=== PATIENT | female | born 1970 | race Caucasian/White ===

== ENCOUNTER 2017-08-13 20:35 | Observation (INO) | payer OTHER ==
[2017-08-13 20:42] VITALS: RESP 18
[2017-08-13] MEDS ORDERED: ASPIRIN 81 MG PO STA (20:49)
[2017-08-13] MEDS ORDERED: SODIUM CHLORIDE 0.9% 1,000 ML IV STA (20:49)
--- NOTE | 2017-08-13 21:00 | ED ---
General Adult HPI - General Chief complaint: Chest Pain Stated complaint: left arm pain Time Seen by Provider: 08/13/17 20:43 Source: patient, EMS, RN notes reviewed Mode of arrival: EMS Limitations: no limitations - History of Present Illness Initial comments: This is a 47-year-old female who presents to the emergency department with chief complaint of left arm pain. Patient states that she has a history of open -heart surgery 4 years ago. She states that for the last 2-3 days she has had intermittent left arm and chest pain. She states that she was evaluated by an emergency department at [facility] in [place] 3 days ago but that they did not diagnose her with anything. She states that she does feel short of breath. She also complains of dizziness when she lies back. Denies any recent illnesses or infections. Denies fevers or chills, abdominal pain, nausea or vomiting. - Related Data Home Medications Medication Instructions Recorded Confirmed Etonogestrel [Nexplanon] 1 implant SQ [id number] 08/13/17 08/13/17 Pregabalin [Lyrica] 150 mg PO BID 08/13/17 08/13/17 Allergies Allergy/AdvReac Type Severity Reaction Status Date / Time Penicillins Allergy Unknown Verified 08/13/17 21:19 Review of Systems ROS Statement: Those systems with pertinent positive or pertinent negative responses have been documented in the HPI. ROS Other: All systems not noted in ROS Statement are negative. Past Medical History Past Medical History: Hearing Disorder / Deafness, Hypertension, Myocardial Infarction (non Q-wave) Additional Past Medical History / Comment(s): speech impairment History of Any Multi-Drug Resistant Organisms: None Reported Past Surgical History: Unable to Obtain, Coronary Bypass/CABG Past Psychological History: Depression Smoking Status: Never smoker Past Alcohol Use History: Abuse, Daily, Heavy Past Drug Use History: None Reported General Exam - General Exam Comments Initial Comments: General: Awake and alert, well-developed; in no apparent distress. HEENT: Head atraumatic, normocephalic. Pupils are equal, round and reactive to light. Extraocular movements intact. Oropharynx moist without erythema or exudate. Missing dentition throughout, making it difficult to understand patient while speaking. Neck: Supple. Normal ROM. Cardiovascular: Regular rate and rhythm. No murmurs, rubs or gallops. Chest symmetrical. Respiratory: Lungs clear to auscultation bilaterally. No wheezes, rales or rhonchi. Normal respiratory effort with no use of accessory muscles. Musculoskeletal: Normal ROM, no tenderness bilateral upper and lower extremities. Skin: [place], warm and dry without rashes or lesions. Neurological: Alert and oriented x3. CN II-XII grossly intact. Speech is fluent and answers are appropriate. No focal neuro deficits. Psychiatric: Normal mood and affect. No overt signs of depression or anxiety noted. Limitations: no limitations Course Vital Signs 08/13/17 20:38 Temperature 98.3 F Pulse Rate 66 Respiratory 18 Rate Blood Pressure 137/87 O2 Sat by Pulse 100 Oximetry EKG Findings - EKG Comments: EKG Findings:: 21:07:05. Normal sinus rhythm, nonspecific intraventricular block, T-wave abnormality, consider anterior ischemia. Ventricular rate 63 bpm , NE interval 156, QRS duration 126, QT/QTc 472/483 Medical Decision Making - Medical Decision Making This is a 47-year-old female who presents to the emergency department with chief complaint of left arm and chest pain for the last 2-3 days. She does report a history of open-heart surgery. CBC, CMP and coags are unremarkable. EKG did reveal normal sinus rhythm, nonspecific intraventricular block and T- wave abnormality. Chest x-ray revealed no acute abnormalities. This case was discussed with attending physician, Dr. Amezquita who recommends admission. Patient is in agreement for admission. She will be admitted for chest pain to Dr. Calvillo with consult to cardiology. Patient's vital signs are stable and she is in no acute distress. - Lab Data Result diagrams: 08/13/17 21:05 08/13/17 21:05 Lab Results 08/13/17 08/13/17 08/13/17 Range/Units 21:05 21:05 21:05 WBC 5.2 (3.8-10.6) k/uL RBC 3.84 (3.80-5.40) m/uL Hgb 13.1 (11.4-16.0) gm/dL Hct 38.8 (34.0-46.0) % MCV 101.1 H (80.0-100.0) fL MCH 34.1 (25.0-35.0) pg MCHC 33.8 (31.0-37.0) g/dL RDW 14.9 (11.5-15.5) % Plt Count 178 (150-450) k/uL Neutrophils % 62 % Lymphocytes % 27 % Monocytes % 6 % Eosinophils % 2 % Basophils % 1 % Neutrophils # 3.2 (1.3-7.7) k/uL Lymphocytes # 1.4 (1.0-4.8) k/uL Monocytes # 0.3 (0-1.0) k/uL Eosinophils # 0.1 (0-0.7) k/uL Basophils # 0.0 (0-0.2) k/uL Macrocytosis Slight PT (9.0-12.0) sec INR (<1.2) APTT (22.0-30.0) sec Sodium 141 (137-145) mmol/L Potassium 4.0 (3.5-5.1) mmol/L Chloride 104 (98-107) mmol/L Carbon Dioxide 25 (22-30) mmol/L Anion Gap 12 mmol/L BUN 9 (7-17) mg/dL Creatinine 0.72 (0.52-1.04) mg/dL Est GFR (CKD-EPI)AfAm >90 (>60 ml/min/1.73 sqM) Est GFR (CKD-EPI)NonAf >90 (>60 ml/min/1.73 sqM) Glucose 87 (74-99) mg/dL Calcium 8.9 (8.4-10.2) mg/dL Magnesium 2.1 (1.6-2.3) mg/dL Total Bilirubin 0.3 (0.2-1.3) mg/dL AST 53 H (14-36) U/L ALT 45 (9-52) U/L Alkaline Phosphatase 54 (38-126) U/L Total Creatine Kinase 60 (30-135) U/L Total Protein 7.0 (6.3-8.2) g/dL Albumin 4.5 (3.5-5.0) g/dL 08/13/17 Range/Units 21:05 WBC (3.8-10.6) k/uL RBC (3.80-5.40) m/uL Hgb (11.4-16.0) gm/dL Hct (34.0-46.0) % MCV (80.0-100.0) fL MCH (25.0-35.0) pg MCHC (31.0-37.0) g/dL RDW (11.5-15.5) % Plt Count (150-450) k/uL Neutrophils % % Lymphocytes % % Monocytes % % Eosinophils % % Basophils % % Neutrophils # (1.3-7.7) k/uL Lymphocytes # (1.0-4.8) k/uL Monocytes # (0-1.0) k/uL Eosinophils # (0-0.7) k/uL Basophils # (0-0.2) k/uL Macrocytosis PT 9.6 (9.0-12.0) sec INR 1.0 (<1.2) APTT 21.6 L (22.0-30.0) sec Sodium (137-145) mmol/L Potassium (3.5-5.1) mmol/L Chloride (98-107) mmol/L Carbon Dioxide (22-30) mmol/L Anion Gap mmol/L BUN (7-17) mg/dL Creatinine (0.52-1.04) mg/dL Est GFR (CKD-EPI)AfAm (>60 ml/min/1.73 sqM) Est GFR (CKD-EPI)NonAf (>60 ml/min/1.73 sqM) Glucose (74-99) mg/dL Calcium (8.4-10.2) mg/dL Magnesium (1.6-2.3) mg/dL Total Bilirubin (0.2-1.3) mg/dL AST (14-36) U/L ALT (9-52) U/L Alkaline Phosphatase (38-126) U/L Total Creatine Kinase (30-135) U/L Total Protein (6.3-8.2) g/dL Albumin (3.5-5.0) g/dL - Radiology Data Radiology results: report reviewed, image reviewed Chest x-ray impression: No active cardiopulmonary disease. Normal heart. Disposition Clinical Impression: Chest pain Disposition: ADMITTED IP TO THIS [facility] Condition: Stable Is patient prescribed a controlled substance at d/c from ED?: No Referrals: Nonstaff,Physician [Primary Care Provider] - 1-2 days Time of Disposition: 21:59
[2017-08-13 21:24] LABS: Basophils % (A) 1 %; Eosinophils # (A) 0.1 k/uL (0-0.7); Eosinophils % (A) 2 %; HCT 38.8 % (34.0-46.0); HGB 13.1 gm/dL (11.4-16.0); Lymphocytes # (A) 1.4 k/uL (1.0-4.8); Lymphocytes % (A) 27 %; MCH 34.1 pg (25.0-35.0); MCHC 33.8 g/dL (31.0-37.0); MCV 101.1 fL (80.0-100.0); Macrocytosis Slight; Mean Platelet Volume 7.7; Monocytes # (A) 0.3 k/uL (0-1.0); Monocytes % (A) 6 %; Neutrophils # (A) 3.2 k/uL (1.3-7.7); Neutrophils % (A) 62 %; Platelet Count 178 k/uL (150-450); RBC 3.84 m/uL (3.80-5.40); RDW 14.9 % (11.5-15.5); WBC 5.2 k/uL (3.8-10.6)
[2017-08-13 21:33] LABS: ALT 45 U/L (9-52); AST 53 U/L (14-36); Albumin 4.5 g/dL (3.5-5.0); Alkaline Phosphatase 54 U/L (38-126); Anion Gap 12 mmol/L; Blood Urea Nitrogen 9 mg/dL (7-17); Calcium 8.9 mg/dL (8.4-10.2); Carbon Dioxide 25 mmol/L (22-30); Chloride 104 mmol/L (98-107); Glucose 87 mg/dL (74-99); Magnesium 2.1 mg/dL (1.6-2.3); Sodium 141 mmol/L (137-145); Total Bilirubin 0.3 mg/dL (0.2-1.3)
[2017-08-13 21:44] LABS: Prothrombin Time 9.6 sec (9.0-12.0)
--- NOTE | 2017-08-13 21:47 | XR ---
EXAMINATION TYPE: XR chest 2V DATE OF EXAM: 08/13/2017 COMPARISON: NONE HISTORY: Chest pain TECHNIQUE: Frontal and lateral views of the chest are obtained. FINDINGS: Heart and mediastinum are normal. There are sternal wires. Lungs are clear. There is no he art failure. Costophrenic angles are clear. There is thoracic levoscoliosis. IMPRESSION: No active cardiopulmonary disease. Normal heart.
[2017-08-13 21:48] LABS: Creatine Kinase 60 U/L (30-135)
[2017-08-13 21:49] LABS: Partial Thromboplastin Time 21.6 sec (22.0-30.0)
[2017-08-13] MEDS ORDERED: NITROGLYCERIN SL TABS 0.4 MG TAB SUBLINGUAL PRN (21:59)
[2017-08-13 22:00] LABS: Creatine Kinase MB 0.8 ng/mL (0.0-2.4); Troponin I <0.012 ng/mL (0.000-0.034)
[2017-08-14 03:38] LABS: Cholesterol 167 mg/dL (<200); HDL Cholesterol 69 mg/dL (40-60); LDL Cholesterol,Calculated 58 mg/dL (0-99); Triglycerides 199 mg/dL (<150)
[2017-08-14 03:47] LABS: Creatine Kinase 46 U/L (30-135)
[2017-08-14 04:00] LABS: Creatine Kinase MB 0.5 ng/mL (0.0-2.4); Troponin I <0.012 ng/mL (0.000-0.034)
[2017-08-14] MEDS ORDERED: ASPIRIN 325 MG TAB PO SCH (09:00)
[2017-08-14 09:41] VITALS: BMI 22.2
[2017-08-14 10:31] LABS: Creatine Kinase 40 U/L (30-135)
[2017-08-14 10:41] LABS: Creatine Kinase MB 0.5 ng/mL (0.0-2.4); Troponin I <0.012 ng/mL (0.000-0.034)
--- NOTE | 2017-08-14 11:17 | P.CRDCN ---
History of Present Illness History of present illness: Mrs. Linares is a pleasant 47-year-old female past medical history significant for open heart surgery when she was 3 years old she recalls that she may have had a hole in her heart. Sternotomy wires seen on xray. She also has history of hypertension and chronic daily alcohol use. She states she is somewhat new to the area and does not follow with any physicians currently. We have been asked to see her in consultation for chest pain. She states yesterday she developed a sharp pain in left precordial region with shortness of breath and dizziness while sitting by the water. The symptoms lasted approximately 5- 10 minutes and subsided on its own. There was also some pain in both arms intermittently as well. She states she tripped and fell Thursday and has been in pain intermittently ever since. The pain in her chest is reproducible on palpation and she says it feels better if she raises her arms above her head. Shortness of breath and dizziness have subsided. She denies associated palpitations, nausea, vomiting or diaphoresis. She also denies PND or orhopnea. She states her last drink was 2 days ago and she typically drinks a few beers per day. EKG reveals sinus mechanism with right bundle branch block and anterior T-wave abnormalities. No old EKG for comparision. Chest xray is negative for an acute cardiopulmonary process with evidence of scoliosis. Laboratory data reviewed, hemoglobin 13.1, platelets 178, d-dimer 0.7, sodium 141, potassium 4.0, magnesium 2.1, creatinine 0.72, cardiac enzymes negative 2 , LDL 58, HDL 69. Medications include Lyrica. Review of Systems At the time of my exam: CONSTITUTIONAL: Denies fever. Denies chills. EYES: Denies blurred vision. Denies vision changes. Denies eye pain. EARS, NOSE, MOUTH & THROAT: Denies headache. Denies sore throat. Denies ear pain. CARDIOVASCULAR: Denies chest pain. Denies shortness of breath. Denies orthopnea. Denies PND. Denies palpitations. RESPIRATORY: Denies cough. GASTROINTESTINAL: Denies abdominal pain. Denies diarrhea. Denies constipation. Denies nausea. Denies vomiting. MUSCULOSKELETAL: Denies myalgias. INTEGUMENTARY: Denies pruitis. Denies rash. NEUROLOGIC: Denies numbness. Denies tingling. Denies weakness. PSYCHIATRIC: Denies anxiety. Denies depression. ENDOCRINE: Denies fatigue. Denies weight change. Denies polydipsia. Denies polyurina. GENITOURINARY: Denies burning, hematuria or urgency with micturation. HEMATOLOGIC: Denies history of anemia. Denies bleeding. Past Medical History Past Medical History: Hearing Disorder / Deafness, Hypertension, Myocardial Infarction (non Q-wave) Additional Past Medical History / Comment(s): speech impairment Last Myocardial Infarction Date:: 2013 History of Any Multi-Drug Resistant Organisms: None Reported Past Surgical History: Coronary Bypass/CABG Additional Past Surgical History / Comment(s): 2013 cabg Past Anesthesia/Blood Transfusion Reactions: No Reported Reaction Past Psychological History: Depression Smoking Status: Never smoker Past Alcohol Use History: Abuse, Daily, Heavy Past Drug Use History: None Reported - Past Family History Father Family Medical History: Cancer, CVA/TIA, Diabetes Mellitus, Hypertension Additional Family Medical History / Comment(s): brain cancer Mother Family Medical History: Dementia Daughter(s) Additional Family Medical History / Comment(s): open heart surgery as an Medications and Allergies Home Medications Medication Instructions Recorded Confirmed Type Etonogestrel [Nexplanon] 1 implant SQ [id number] 08/13/17 08/14/17 History Pregabalin [Lyrica] 150 mg PO BID 08/13/17 08/14/17 History Allergies Allergy/AdvReac Type Severity Reaction Status Date / Time Influenza Virus Vaccines Allergy Unknown Verified 08/14/17 00:11 Penicillins Allergy Unknown Verified 08/13/17 21:19 Physical Exam Vitals: Vital Signs Temp Pulse Pulse Resp BP BP Pulse Ox 08/14/17 04:00 98.4 F 75 18 100/60 97 08/14/17 00:00 18 08/13/17 23:59 97.9 F 75 124/68 98 08/13/17 23:21 97.6 F 74 18 140/84 100 08/13/17 22:40 68 18 137/74 97 08/13/17 20:38 98.3 F 66 18 137/87 100 Intake and Output 08/13/17 08/14/17 08/14/17 22:59 06:59 14:59 Other: Voiding Method Toilet Weight 49.895 kg Blood pressure 114/72 heart rate 67 afebrile maintaining oxygen saturation on room air GENERAL: This is a 47-year-old female in no apparent distress at the time of my examination. Hard of hearing. HEENT: Head is atraumatic, normocephalic. Pupils are equal, round. Sclerae anicteric. Conjunctivae are clear. Mucous membranes of the mouth are moist. Neck is supple. There is no jugular venous distention. No carotid bruit is heard. LUNGS: Clear to auscultation no wheezes, rales or rhonchi. No chest wall tenderness is noted on palpation or with deep breathing. HEART: Regular rate and rhythm without murmurs, rubs or gallops. S1 and S2 heard. ABDOMEN: Soft, nontender. Bowel sounds are heard. No organomegaly noted. EXTREMITIES: No evidence of peripheral edema and no calf tenderness noted. VASCULAR: Radial and dorsalis pedis pulses palpated, no evidence of clubbing. NEUROLOGIC: Patient is awake, alert and oriented x3. Results 08/13/17 21:05 08/13/17 21:05 Cardiac Enzymes 08/13/17 08/13/17 08/14/17 Range/Units 21:05 21:05 03:08 AST 53 H (14-36) U/L CK-MB (CK-2) 0.8 0.5 (0.0-2.4) ng/mL Troponin I <0.012 <0.012 (0.000-0.034) ng/mL Coagulation 08/13/17 Range/Units 21:05 PT 9.6 (9.0-12.0) sec APTT 21.6 L (22.0-30.0) sec Lipids 08/14/17 Range/Units 03:08 Triglycerides 199 H (<150) mg/dL Cholesterol 167 (<200) mg/dL HDL Cholesterol 69 H (40-60) mg/dL CBC 08/13/17 Range/Units 21:05 WBC 5.2 (3.8-10.6) k/uL RBC 3.84 (3.80-5.40) m/uL Hgb 13.1 (11.4-16.0) gm/dL Hct 38.8 (34.0-46.0) % Plt Count 178 (150-450) k/uL Comprehensive Metabolic Panel 06/21/18 Range/Units 21:05 Sodium 141 (137-145) mmol/L Potassium 4.0 (3.5-5.1) mmol/L Chloride 104 (98-107) mmol/L Carbon Dioxide 25 (22-30) mmol/L BUN 9 (7-17) mg/dL Creatinine 0.72 (0.52-1.04) mg/dL Glucose 87 (74-99) mg/dL Calcium 8.9 (8.4-10.2) mg/dL AST 53 H (14-36) U/L ALT 45 (9-52) U/L Alkaline Phosphatase 54 (38-126) U/L Total Protein 7.0 (6.3-8.2) g/dL Albumin 4.5 (3.5-5.0) g/dL Current Medications Generic Name Dose Route Start Last Admin Trade Name Freq PRN Reason Stop Dose Admin Aspirin 325 mg 08/14/17 09:00 Aspirin PO DAILY LELA Nitroglycerin 0.4 mg 08/13/17 21:59 Nitrostat SUBLINGUAL Q5M PRN Chest Pain Intake and Output 08/13/17 08/14/17 08/14/17 22:59 06:59 14:59 Other: Voiding Method Toilet Weight 49.895 kg 08/13/17 21:05 08/13/17 21:05 Assessment and Plan Assessment: ASSESSMENT 1. Chest pain, atypical. An acute coronary event has ruled out with no EKG evidence of acute ischemia and negative cardiac enzymes. 2. Elevated d-dimer, CT angios chest has been ordered and is currently pending. 3. History of open heart surgery, details unavailable to me. Patient unclear of exactly what was performed. Evidence of sternotomy wires and chest x-ray. 4. States she has a history of hypertension although not on any anti- hypertensive medications with controlled blood pressure currently 5. Chronic alcohol abuse PLAN Obtain 2-D echocardiogram and Doppler study to assess cardiac structure and function. Perform CT angio of the chest rule out pulmonary embolism. If this is negative she should continue forward with stress echocardiogram to assess for stress- induced cardiac ischemia. Thank you kindly for this consultation. Nurse Practitioner note has been reviewed, I agree with a documented findings and plan of care. Patient was seen and examined.
--- NOTE | 2017-08-14 11:56 | CT ---
EXAMINATION TYPE: CT angio chest DATE OF EXAM: 08/14/2017 11:38 AM COMPARISON: NONE HISTORY: Chest Pain CT DLP: 97.60 mGycm Automated exposure control for dose reduction was used. CONTRAST: CTA scan of the thorax is performed with IV Contrast, patient injected with 100 ml mL of Isovue 370, pulmonary embolism protocol. . FINDINGS: LUNGS: The lungs are grossly clear, there is no concerning parenchymal mass or nodule identified. T here is no pleural effusion or pneumothorax seen. The tracheobronchial tree is patent. Subsegmental linear changes at the right lung bases most typical of scar or atelectasis. MEDIASTINUM: There is satisfactory enhancement of the pulmonary artery and its branches, there is no CT evidence for pulmonary embolism. There are no greater than 1 cm hilar or mediastinal lymph nodes. No pericardial effusion is seen. 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 The heart is enlarged and there are sternotomy wires. 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 There is artifact which limits evaluation of the posterior margin of the heart. OTHER: There is a 1.6 cm hepatic lesion is indeterminate by noncontrast technique. Smaller 5 mm lesi on near the dome of diaphragm. Hypertrophic and degenerative changes of the spine. Scoliotic curvatur e noted. The vascularity in the splenic hilum is only partially included but suggestive of varices. IMPRESSION: 1. No diagnostic evidence of pulmonary embolism. 2. 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 Correlate clinically. Aneurysm al dilation of the origin of the left subclavian artery as measured above. 3. Upper abdominal varices not excluded. Report for cardiomegaly. Artifact within the posterior renae n of the heart limits its evaluation. 4. Cardiomegaly. 5. Indeterminate hepatic lesion by noncontrast technique.
[2017-08-14 12:35] VITALS: TEMP 98.7
--- NOTE | 2017-08-14 12:54 | P.STRESS ---
- Stress Test Note Stress Test Results/Findings: Exam Performed: stress echo exercise Exam Date: 08/14/17 Reason for Exam: Chest Pain Height: 4 ft 11 in Weight: 49.895 kg Protocol: Echo Stress Stage: 3 Duration of Exercise: 9:06 Resting Heart Rate: 59 Resting Blood Pressure: 106/70 Maximum Achieved Heart Rate: 130 Maximum Achieved Blood Pressure: 150/81 85% PMHR: 146 100% PMHR: 172 METS: 10.1 Technologist Comment: Stress Test Results/Findings: This is a 47-year-old female with history of palpitations, dyspnea on exertion and being evaluated for symptoms of chest pain. Stress data: Baseline EKG showed a sinus rhythm and sinus bradycardia with incomplete right bundle branch pattern. Blood pressure at rest is 106/70 with pulse rate of 59. Patient walked on the Tin protocol for 9 minutes achieving a maximal rate of 1:30 with blood pressure 129/43. The test was stopped because of tiredness. She achieved only 75% of the pectoral heart rate. Patient did not experience any chest pain. EKGs taken during and after the exercise did not reveal any significant changes from the baseline to suggest ischemia. Echo data: Baseline echo images show normal wall motion and thickening. Exercise echo images showed augmentation of the wall motion and thickening in all segments. Final impression: #1. The test is felt to be nondiagnostic because patient did not achieve 85% predicted heart rate. #2. There is no echo evidence of ischemia at about age 75% of predicted heart rate. #3. Patient did not express any chest pain. #4. Good exercise capacity
--- NOTE | 2017-08-14 14:02 | ECHOS ---
Referral Reason:cp MEASUREMENTS -------- HEIGHT: 129.5 cm WEIGHT: 49.9 kg BP: 114/72 RVIDd: 2.3 cm (< 3.3) IVSd: 1.2 cm (0.6 - 1.1) LVIDd: 3.6 cm (3.9 - 5.3) LVPWd: 1.4 cm (0.6 - 1.1) IVSs: 1.8 cm LVIDs: 2.4 cm LVPWs: 1.8 cm Ao Diam: 3.1 cm (2.0 - 3.7) AV Cusp: 2.2 cm (1.5 - 2.6) LA Diam: 2.8 cm (2.7 - 3.8) MV EXCURSION: 11.236 mm (> 18.000) MV EF SLOPE: 93 mm/s (70 - 150) EPSS: 0.6 cm MV E Ray: 0.98 m/s MV DecT: 173 ms MV A Ray: 0.55 m/s MV E/A Ratio: 1.80 RAP: 5.00 mmHg RVSP: 30.02 mmHg FINDINGS -------- Sinus rhythm. This was a technically good study. The left ventricular size is normal. There is mild concentric left ventricular hypertrophy. Overa ll left ventricular systolic function is normal with, an EF between 55 - 60 %. The right ventricle is normal in size and function. The left atrium is normal in size. The right atrium is normal in size. The aortic valve is trileaflet, and appears structurally normal. No aortic stenosis or regurgitation. The mitral valve leaflets are mildly thickened. Mild mitral regurgitation is present. Mild tricuspid regurgitation present. The right ventricular systolic pressure, as measured by Doppl er, is 30.02mmHg. Pulmonic valve appears structurally normal. The aortic root size is normal. The pericardium is normal. CONCLUSIONS -------- 1. Sinus rhythm. 2. This was a technically good study. 3. The left ventricular size is normal. 4. There is mild concentric left ventricular hypertrophy. 5. Overall left ventricular systolic function is normal with, an EF between 55 - 60 %. 6. The right ventricle is normal in size and function. 7. The left atrium is normal in size. 8. The right atrium is normal in size. 9. The aortic valve is trileaflet, and appears structurally normal. No aortic stenosis or regurgitati on. 10. The mitral valve leaflets are mildly thickened. 11. Mild mitral regurgitation is present. 12. Mild tricuspid regurgitation present. 13. The right ventricular systolic pressure, as measured by Doppler, is 30.02mmHg. 14. Pulmonic valve appears structurally normal. 15. The aortic root size is normal. 16. The pericardium is normal. CAREER DEVELOPMENT COORDINATOR/TEACHER: Reanna Jon RDCS
[2017-08-14 15:48] VITALS: BP 118/62; PULSE 68
--- NOTE | 2017-08-14 17:02 | P.HPIM ---
History of Present Illness H&P Date: 08/14/17 Chief Complaint: Chest pain Patient is a 47-year-old male with known history of hypertension, history of VA , and history of open heart surgery when she was 3 years old came to ER with complaints of chest pain. Left retrosternal. Sharp and associated with shortness of breath and dizziness and tingling sensation over the left arm. Patient says that she tripped over and fell on Thursday didn't injure her left hand, possible contusion. Patient's sister says that symptoms lasted about 5-10 minutes on and off. Symptoms gets worse when she raises arm over the head She denies associated palpitations, nausea, vomiting or diaphoresis. She also denies PND or orhopnea. She states her last drink was 2 days ago and she typically drinks a few beers per day. EKG reveals sinus mechanism with right bundle branch block and anterior T-wave abnormalities. No old EKG for comparision. Chest xray is negative for an acute cardiopulmonary process with evidence of scoliosis. Laboratory data reviewed, hemoglobin 13.1, platelets 178, d-dimer 0.7, sodium 141, potassium 4.0, magnesium 2.1, creatinine 0.72, cardiac enzymes negative 2 , LDL 58, HDL 69. Medications include Lyrica. Review of Systems Constitutional: Patient denies any fever or chills . No generalized weakness or weight loss. Abdomen: Patient denied nausea vomiting and diarrhea and abdominal pain. Cardiovascular: Patient denies any chest pain or short of breath no palpitations. Respiratory: patient denied any cough is from production. No shortness of breath Neurologic: Patient denied any numbness or tingling headache. Musculoskeletal: Right arm tingling sensation. Patient denies any complaints of joint swelling or deformity. Skin: Negative Psychiatric: Negative Endocrine: No heat or cold intolerance. No recent weight gain. Genitourinary: No dysuria or hematuria. All other 14 point ROS negative except the above Past Medical History Past Medical History: Hearing Disorder / Deafness, Hypertension, Myocardial Infarction (non Q-wave) Additional Past Medical History / Comment(s): speech impairment Last Myocardial Infarction Date:: 2013 History of Any Multi-Drug Resistant Organisms: None Reported Past Surgical History: Coronary Bypass/CABG Additional Past Surgical History / Comment(s): 2013 cabg Past Anesthesia/Blood Transfusion Reactions: No Reported Reaction Past Psychological History: Depression Smoking Status: Never smoker Past Alcohol Use History: Abuse, Daily, Heavy Past Drug Use History: None Reported - Past Family History Father Family Medical History: Cancer, CVA/TIA, Diabetes Mellitus, Hypertension Additional Family Medical History / Comment(s): brain cancer Mother Family Medical History: Dementia Daughter(s) Additional Family Medical History / Comment(s): open heart surgery as an Medications and Allergies Home Medications Medication Instructions Recorded Confirmed Type Etonogestrel [Nexplanon] 1 implant SQ [id number] 08/13/17 08/14/17 History Pregabalin [Lyrica] 150 mg PO BID 08/13/17 08/14/17 History Allergies Allergy/AdvReac Type Severity Reaction Status Date / Time Influenza Virus Vaccines Allergy Unknown Verified 08/14/17 00:11 Penicillins Allergy Unknown Verified 08/13/17 21:19 Physical Exam Vitals: Vital Signs Temp Pulse Pulse Resp BP BP BP 08/14/17 15:03 08/14/17 12:34 98.7 F 73 18 128/69 08/14/17 07:25 98.1 F 67 18 114/72 08/14/17 04:00 98.4 F 75 18 100/60 08/14/17 00:00 18 08/13/17 23:59 97.9 F 75 124/68 08/13/17 23:21 97.6 F 74 18 140/84 08/13/17 22:40 68 18 137/74 08/13/17 20:38 98.3 F 66 18 137/87 Pulse Ox 08/14/17 15:03 96 08/14/17 12:34 96 08/14/17 07:25 97 08/14/17 04:00 97 08/14/17 00:00 08/13/17 23:59 98 08/13/17 23:21 100 08/13/17 22:40 97 08/13/17 20:38 100 Intake and Output 08/14/17 08/14/17 08/14/17 06:59 14:59 22:59 Intake Total 400 Balance 400 Intake: Oral 400 Other: Voiding Method Toilet Toilet Weight 49.895 kg PHYSICAL EXAMINATION: Patient is lying in the bed comfortably, no acute distress, awake alert and oriented.. HEENT: Normocephalic. Neck is supple. Pupils reactive. Nostrils clear. Oral cavity is moist. Ears reveal no drainage. Neck reveals no JVD, carotid bruits, or thyromegaly. CHEST EXAMINATION: Trachea is central. Symmetrical expansion. Lung perez clear to auscultation and percussion. CARDIAC: Normal S1, S2 with no gallops. No murmurs ABDOMEN: Soft. Bowel sounds normal. No organomegaly. No abdominal bruits. Extremities: reveal no edema. No clubbing or cyanosis Neurologically awake, alert, oriented x3 with well-coordinated movements. No focal deficits noted Skin: No rash or skin lesions. Psychiatric: Cooperative. Nonsuicidal Musculoskeletal: Right forefinger distal pharynx amputated.. No joint swelling or deformity. Normal range of motion. Results CBC & Chem 7: 08/13/17 21:05 08/13/17 21:05 Labs: Abnormal Lab Results - Last 24 Hours (Table) 08/13/17 08/13/17 08/13/17 Range/Units 21:05 21:05 21:05 MCV 101.1 H (80.0-100.0) fL APTT 21.6 L (22.0-30.0) sec D-Dimer (<0.60) mg/L FEU AST 53 H (14-36) U/L Triglycerides (<150) mg/dL HDL Cholesterol (40-60) mg/dL 08/14/17 08/14/17 Range/Units 03:08 09:56 MCV (80.0-100.0) fL APTT (22.0-30.0) sec D-Dimer 0.70 H (<0.60) mg/L FEU AST (14-36) U/L Triglycerides 199 H (<150) mg/dL HDL Cholesterol 69 H (40-60) mg/dL Thrombosis Risk Factor Assmnt - DVT/VTE Prophylaxis DVT/VTE Prophylaxis: Pharmacologic Prophylaxis ordered - Choose All That Apply Any of the Below Risk Factors Present?: Yes Each Factor Represents 1 point: Age 41-60 years Other Risk Factors: No Other congenital or acquired thrombophilia - If yes, enter type in comment: No Thrombosis Risk Factor Assessment Total Risk Factor Score: 1 Thrombosis Risk Factor Assessment Level: Low Risk Assessment and Plan Assessment: Atypical chest pain. 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 2-D echo and stress echo was ordered as per cardiology recommendations. Serial troponin 3 negative. Patient did improve symptomatically otherwise. Further recommendations based on the clinical course. Time with Patient: Greater than 30
--- NOTE | 2017-08-14 17:15 | P.DS ---
Providers Date of admission: 08/13/17 23:10 Expected date of discharge: 08/14/17 Attending physician: Alfredito Calvillo Consults: 08/13/17 22:00 Consult Physician Urgent Consulting Provider: Jesica Russell Consult Reason/Comments: chest pain Do you want consulting provider notified?: Yes Primary care physician: Physician Nonstaff Hospital Course: Discharge diagnosis Atypical chest pain. 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 Left retrosternal. Sharp and associated with shortness of breath and dizziness and tingling sensation over the left arm. Patient says that she tripped over and fell on Thursday didn't injure her left hand, possible contusion. Patient's sister says that symptoms lasted about 5-10 minutes on and off. Symptoms gets worse when she raises arm over the head She denies associated palpitations, nausea, vomiting or diaphoresis. She also denies PND or orhopnea. She states her last drink was 2 days ago and she typically drinks a few beers per day. EKG reveals sinus mechanism with right bundle branch block and anterior T-wave abnormalities. No old EKG for comparision. Chest xray is negative for an acute cardiopulmonary process with evidence of scoliosis. Laboratory data reviewed, hemoglobin 13.1, platelets 178, d-dimer 0.7, sodium 141, potassium 4.0, magnesium 2.1, creatinine 0.72, cardiac enzymes negative 2 , LDL 58, HDL 69 Medications include Lyrica. Plan: Patient was continued on telemetry monitoring. 2-D echo and stress echo was ordered as per cardiology recommendations. Serial troponin 3 negative. Patient did improve symptomatically otherwise. Final impression: #1. The test is felt to be nondiagnostic because patient did not achieve 85% predicted heart rate. #2. There is no echo evidence of ischemia at about age 75% of predicted heart rate. #3. Patient did not express any chest pain. #4. Good exercise capacity Patient was counseled for alcohol abuse and will be continued on thiamine and folic acid. Recommended to follow with cardiology as an outpatient and also primary care physician. Discharge physical examination was done and vitals reviewed. Patient Condition at Discharge: Stable Plan - Discharge Summary Discharge Rx Participant: No New Discharge Prescriptions: New Multivitamin [Men's Multi-Vitamin] 1 each PO DAILY #30 tablet Thiamine [Vitamin B-1] 100 mg PO DAILY #30 tablet Continue Etonogestrel [Nexplanon] 1 implant SQ [id number] Pregabalin [Lyrica] 150 mg PO BID Discharge Medication List Etonogestrel [Nexplanon] 1 implant SQ [id number] 08/13/17 [History] Pregabalin [Lyrica] 150 mg PO BID 08/13/17 [History] Multivitamin [Men's Multi-Vitamin] 1 each PO DAILY #30 tablet 08/14/17 [Rx] Thiamine [Vitamin B-1] 100 mg PO DAILY #30 tablet 08/14/17 [Rx] Follow up Appointment(s)/Referral(s): Nonstaff,Physician [Primary Care Provider] - 1-2 days Alta Monroe MD [STAFF PHYSICIAN] - 2 Weeks Discharge Disposition: HOME SELF-CARE
[2017-08-14] MEDS ORDERED: PREGABALIN 75 MG CAP PO SCH (21:00)
--- NOTE | 2017-08-18 11:21 | ECHOF ---
Referral Reason: MEASUREMENTS -------- HEIGHT: 0.0 cm WEIGHT: 0.0 kg BP: 114/72 RVIDd: 2.3 cm (< 3.3) IVSd: 1.2 cm (0.6 - 1.1) LVIDd: 3.6 cm (3.9 - 5.3) LVPWd: 1.4 cm (0.6 - 1.1) IVSs: 1.8 cm LVIDs: 2.4 cm LVPWs: 1.8 cm Ao Diam: 3.1 cm (2.0 - 3.7) AV Cusp: 2.2 cm (1.5 - 2.6) LA Diam: 2.8 cm (2.7 - 3.8) MV EXCURSION: 11.236 mm (> 18.000) MV EF SLOPE: 93 mm/s (70 - 150) EPSS: 0.6 cm MV E Ray: 0.98 m/s MV DecT: 173 ms MV A Ray: 0.55 m/s MV E/A Ratio: 1.80 RAP: 5.00 mmHg RVSP: 30.02 mmHg FINDINGS -------- Sinus rhythm. This was a technically good study. The left ventricular size is normal. There is mild concentric left ventricular hypertrophy. Overa ll left ventricular systolic function is normal with, an EF between 55 - 60 %. The right ventricle is normal in size and function. The left atrium is normal in size. The right atrium is normal in size. The aortic valve is trileaflet, and appears structurally normal. No aortic stenosis or regurgitation. The mitral valve leaflets are mildly thickened. Mild mitral regurgitation is present. Mild tricuspid regurgitation present. The right ventricular systolic pressure, as measured by Doppl er, is 30.02mmHg. Pulmonic valve appears structurally normal. The aortic root size is normal. The pericardium is normal. CONCLUSIONS -------- 1. Sinus rhythm. 2. This was a technically good study. 3. The left ventricular size is normal. 4. There is mild concentric left ventricular hypertrophy. 5. Overall left ventricular systolic function is normal with, an EF between 55 - 60 %. 6. The right ventricle is normal in size and function. 7. The left atrium is normal in size. 8. The right atrium is normal in size. 9. The aortic valve is trileaflet, and appears structurally normal. No aortic stenosis or regurgitati on. 10. The mitral valve leaflets are mildly thickened. 11. Mild mitral regurgitation is present. 12. Mild tricuspid regurgitation present. 13. The right ventricular systolic pressure, as measured by Doppler, is 30.02mmHg. 14. Pulmonic valve appears structurally normal. 15. The aortic root size is normal. 16. The pericardium is normal. VP OF PRODUCT: Reanna Jon RDCS
== END 2017-08-14 18:25 | disposition home or self-care (01) ==
LOC: EC 20:35 → 3OBS 23:10
PROVIDERS: ADMIT Hospitalist; ATTEND Hospitalist
DX: R07.89 Other chest pain (principal); R79.89 Other specified abnormal findings of blood chemistry; R20.2 Paresthesia of skin; M79.602 Pain in left arm; R06.02 Shortness of breath; R42 Dizziness and giddiness; I10 Essential (primary) hypertension; H91.90 Unspecified hearing loss, unspecified ear; R47.9 Unspecified speech disturbances; F32.9 Major depressive disorder, single episode, unspecified; F10.10 Alcohol abuse, uncomplicated; Z95.1 Presence of aortocoronary bypass graft; W01.0XXA Fall on same level from slipping, tripping and stumbling without subsequent striking against object, initial encounter; Z88.0 Allergy status to penicillin; Z88.7 Allergy status to serum and vaccine; Z79.899 Other long term (current) drug therapy; I25.2 Old myocardial infarction; Z80.8 Family history of malignant neoplasm of other organs or systems; Z83.3 Family history of diabetes mellitus; Z82.49 Family history of ischemic heart disease and other diseases of the circulatory system; Z81.8 Family history of other mental and behavioral disorders; Z82.3 Family history of stroke
CPT/HCPCS: 99285 ×2; 82075; 36415; 94760; 93005; 93306; 93351; 85379; 80061; 80053; 82550 ×2; 82553 ×2; 83735; 84484 ×2; 85025; 85610; 85730; 71046; 71275; G0378 ×2; Q9967

== ENCOUNTER 2017-08-29 00:58 | Observation (INO) | payer OTHER ==
[2017-08-29] MEDS ORDERED: SODIUM CHLORIDE 0.9% 1,000 ML IV STA (01:12)
[2017-08-29] MEDS ORDERED: NITROGLYCERIN SL TABS 0.4 MG TAB SUBLINGUAL PRN (01:12)
--- NOTE | 2017-08-29 01:34 | ED ---
General Adult HPI - General Chief complaint: Chest Pain Stated complaint: Chest Pain Time Seen by Provider: 08/29/17 01:09 Source: patient, EMS, RN notes reviewed, old records reviewed Mode of arrival: EMS Limitations: no limitations - History of Present Illness Initial comments: This is a 39-year-old female the ER for evaluation. Patient is today for evaluation regards to chest pain. Patient was recently admitted to the hospital a month ago for evaluation of similar complaint. Patient states she has worsening pain currently. This time she's had the pain for a week. She does admit to history of high blood pressure - Related Data Home Medications Medication Instructions Recorded Confirmed Etonogestrel [Nexplanon] 1 implant SQ [id number] 08/13/17 08/14/17 Pregabalin [Lyrica] 150 mg PO BID 08/13/17 08/14/17 Previous Rx's Medication Instructions Recorded Multivitamin [Men's Multi-Vitamin] 1 each PO DAILY #30 tablet 08/14/17 Thiamine [Vitamin B-1] 100 mg PO DAILY #30 tablet 08/14/17 Allergies Allergy/AdvReac Type Severity Reaction Status Date / Time Influenza Virus Vaccines Allergy Unknown Verified 08/14/17 00:11 Penicillins Allergy Unknown Verified 08/13/17 21:19 Review of Systems ROS Statement: Those systems with pertinent positive or pertinent negative responses have been documented in the HPI. ROS Other: All systems not noted in ROS Statement are negative. Past Medical History Past Medical History: Hearing Disorder / Deafness, Hypertension, Myocardial Infarction (non Q-wave) Additional Past Medical History / Comment(s): speech impairment Last Myocardial Infarction Date:: 2013 History of Any Multi-Drug Resistant Organisms: None Reported Past Surgical History: Coronary Bypass/CABG Additional Past Surgical History / Comment(s): 2013 cabg Past Anesthesia/Blood Transfusion Reactions: No Reported Reaction Past Psychological History: Depression Smoking Status: Never smoker Past Alcohol Use History: Abuse, Daily, Heavy Past Drug Use History: None Reported - Past Family History Father Family Medical History: Cancer, CVA/TIA, Diabetes Mellitus, Hypertension Additional Family Medical History / Comment(s): brain cancer Mother Family Medical History: Dementia Daughter(s) Additional Family Medical History / Comment(s): open heart surgery as an infant General Exam Limitations: no limitations General appearance: alert, in no apparent distress, anxious Head exam: Present: atraumatic, normocephalic, normal inspection Eye exam: Present: normal appearance, PERRL, EOMI. Absent: scleral icterus, conjunctival injection, periorbital swelling ENT exam: Present: normal exam, mucous membranes moist Neck exam: Present: normal inspection. Absent: tenderness, meningismus, lymphadenopathy Respiratory exam: Present: normal lung sounds bilaterally. Absent: respiratory distress, wheezes, rales, rhonchi, stridor Cardiovascular Exam: Present: regular rate, normal rhythm, normal heart sounds. Absent: systolic murmur, diastolic murmur, rubs, gallop, clicks GI/Abdominal exam: Present: soft, normal bowel sounds. Absent: distended, tenderness, guarding, rebound, rigid Extremities exam: Present: normal inspection, full ROM, normal capillary refill. Absent: tenderness, pedal edema, joint swelling, calf tenderness Back exam: Present: normal inspection Neurological exam: Present: alert, oriented X3, CN II-XII intact Psychiatric exam: Present: normal affect, normal mood Skin exam: Present: warm, dry, intact, normal color. Absent: rash Course Vital Signs 08/29/17 01:08 Temperature 98.6 F Pulse Rate 74 Respiratory 18 Rate Blood Pressure 125/79 O2 Sat by Pulse 97 Oximetry - Reevaluation(s) Reevaluation #1: 08/29/17 01:33 Medical record and recent hospitalization is reviewed EKG Findings - EKG Comments: EKG Findings:: EKG shows sinus bradycardia rate of 59, MT 162, QRS 126, QTc 461 Critical Care Time Critical Care Time: Yes Total Critical Care Time: 31 Disposition Clinical Impression: Chest pain Disposition: ADMITTED IP TO THIS HOSP Condition: Undetermined Instructions: Chest Pain (ED) Is patient prescribed a controlled substance at d/c from ED?: No Referrals: None,Stated [Primary Care Provider] - 1-2 days
[2017-08-29 01:44] LABS: Basophils % (A) 1 %; Eosinophils # (A) 0.1 k/uL (0-0.7); Eosinophils % (A) 2 %; HCT 37.7 % (34.0-46.0); HGB 12.8 gm/dL (11.4-16.0); Lymphocytes # (A) 1.1 k/uL (1.0-4.8); Lymphocytes % (A) 18 %; MCH 34.6 pg (25.0-35.0); MCV 101.9 fL (80.0-100.0); Macrocytosis Slight; Mean Platelet Volume 7.5; Monocytes # (A) 0.5 k/uL (0-1.0); Monocytes % (A) 8 %; Neutrophils # (A) 4.4 k/uL (1.3-7.7); Neutrophils % (A) 70 %; Platelet Count 212 k/uL (150-450); RDW 14.3 % (11.5-15.5); WBC 6.3 k/uL (3.8-10.6)
[2017-08-29 01:53] LABS: ALT 31 U/L (9-52); AST 29 U/L (14-36); Albumin 4.1 g/dL (3.5-5.0); Alkaline Phosphatase 50 U/L (38-126); Anion Gap 13 mmol/L; Blood Urea Nitrogen 9 mg/dL (7-17); Calcium 9.1 mg/dL (8.4-10.2); Carbon Dioxide 23 mmol/L (22-30); Chloride 105 mmol/L (98-107); Glucose 100 mg/dL (74-99); Lipase 154 U/L (23-300); Magnesium 2.1 mg/dL (1.6-2.3); Potassium 3.8 mmol/L (3.5-5.1); Sodium 141 mmol/L (137-145); Total Bilirubin 0.3 mg/dL (0.2-1.3); Total Protein 6.6 g/dL (6.3-8.2)
--- NOTE | 2017-08-29 01:54 | XR ---
EXAMINATION TYPE: XR chest 2V DATE OF EXAM: 08/29/2017 COMPARISON: 08/13/2017 HISTORY: Chest pain TECHNIQUE: Frontal and lateral views of the chest are obtained. FINDINGS: There are sternal wires. There is no heart failure nor confluent pneumonic infiltrate. The re is apparent right-sided aortic arch. There is levocardia. Diaphragm is normal. Pulmonary vasculari ty is normal. Bony thorax is intact. IMPRESSION: No active cardiopulmonary disease. No change.
[2017-08-29 02:04] LABS: Creatine Kinase 70 U/L (30-135)
[2017-08-29 02:05] LABS: Partial Thromboplastin Time 22.5 sec (22.0-30.0); Prothrombin Time 9.7 sec (9.0-12.0)
[2017-08-29 02:17] LABS: Creatine Kinase MB 0.6 ng/mL (0.0-2.4); Troponin I <0.012 ng/mL (0.000-0.034)
[2017-08-29 03:28] VITALS: BMI 21.3
--- NOTE | 2017-08-29 07:58 | P.CRDCN ---
History of Present Illness Consult date: 08/29/17 Requesting physician: Alfredito Calvillo Consult reason: chest pain Chief complaint: Chest pain History of present illness: This is a 47-year-old female with past medical history significant for open heart surgery when she was 3 years of age, she states she may have had a hole in her heart at that time. Patient also has history of hypertension for which she takes no medications. History also of chronic alcohol use. No nicotine dependence, denies diabetes or hyperlipidemia. Her father had a stroke at the age of 50. Patient was recently in the hospital on August 13 with symptoms of chest discomfort she underwent a stress echocardiographic study at that time which was negative for any reversible ischemia. The test was felt to be nondiagnostic because the patient did not achieve 85% of predicted heart rate , there were no echo evidence of ischemia at 75% of predicted heart rate. Echocardiogram with Doppler study performed at that time showed a normal ejection fraction. Patient presents to the hospital on this occasion with symptoms of midsternal chest pressure which she states radiates across the chest and down into her left arm down into her fingers. EKG on arrival here showed a normal sinus rhythm with right bundle branch block pattern and ST-T wave changes noted in the anterior leads, similar to prior EKGs. CT of the chest was performed on this most recent admission which did not reveal any evidence of a pulmonary embolism. Chest x-ray on this admission did not reveal any active cardiopulmonary disease. Blood pressure 105/70 with a heart rate in the 70s, 99% on room air. White blood cell count is normal, hemoglobin 12.8, platelet count 212. Sodium 141, potassium 3.8, BUN 9, creatinine 0.6. Troponins negative times one. At the time of my examination this morning, patient states she has some mild aching in her left arm denies any chest pain. Past Medical History Past Medical History: Hearing Disorder / Deafness, Hypertension, Myocardial Infarction (non Q-wave) Additional Past Medical History / Comment(s): speech impairment Last Myocardial Infarction Date:: 2013 History of Any Multi-Drug Resistant Organisms: None Reported Past Surgical History: Coronary Bypass/CABG Additional Past Surgical History / Comment(s): cabg when 3 years old Past Anesthesia/Blood Transfusion Reactions: No Reported Reaction Past Psychological History: Depression Smoking Status: Never smoker Past Alcohol Use History: Abuse, Daily, Heavy Past Drug Use History: None Reported - Past Family History Father Family Medical History: Cancer, CVA/TIA, Diabetes Mellitus, Hypertension Additional Family Medical History / Comment(s): brain cancer Mother Family Medical History: Dementia Daughter(s) Additional Family Medical History / Comment(s): open heart surgery as an infant Medications and Allergies Home Medications Medication Instructions Recorded Confirmed Type Etonogestrel [Nexplanon] 1 implant SQ [id number] 08/13/17 08/14/17 History Pregabalin [Lyrica] 150 mg PO BID 08/13/17 08/14/17 History Multivitamin [Men's Multi-Vitamin] 1 each PO DAILY #30 tablet 08/14/17 Rx Thiamine [Vitamin B-1] 100 mg PO DAILY #30 tablet 08/14/17 Rx Allergies Allergy/AdvReac Type Severity Reaction Status Date / Time Influenza Virus Vaccines Allergy Unknown Verified 08/14/17 00:11 Penicillins Allergy Unknown Verified 08/13/17 21:19 Physical Exam Vitals: Vital Signs Temp Pulse Pulse Resp BP BP Pulse Ox 08/29/17 04:00 97.0 F L 75 18 105/77 99 08/29/17 02:59 97.0 F L 75 19 105/77 99 08/29/17 02:55 98.7 F 19 08/29/17 02:41 78 19 132/85 98 08/29/17 01:08 98.6 F 74 18 125/79 97 Intake and Output 08/28/17 08/29/17 08/29/17 22:59 06:59 14:59 Intake Total 300 Balance 300 Intake: Intake, IV Titration 300 Amount Sodium Chloride 0.9% 1, 300 000 ml @ 100 mls/hr IV . Q10H STA Rx#:[id number] Other: Voiding Method Toilet Weight 47.9 kg PHYSICAL EXAMINATION: GENERAL: 47-year-old female in no apparent distress at the time of my examination. HEENT: Head is atraumatic, normocephalic. Pupils equal, round. Sclera anicteric. Conjunctiva are clear. Mucous membranes of the mouth are moist. Neck is supple. There is no elevated jugular venous pressure.] bruit is heard. HEART EXAMINATION: Heart S1, S2 normal. No murmur or gallop heard. CHEST EXAMINATION: Lungs are clear to auscultation and precussion. No chest wall tenderness is noted on palpation or with deep breathing. ABDOMEN: Soft, nontender. Bowel sounds are heard. No organomegaly noted. EXTREMITIES: 2+ peripheral pulses with no evidence of peripheral edema and no calf tenderness noted. Patient does have noted scoliosis NEUROLOGIC patient is awake, alert and oriented ?-3. . Results 08/29/17 01:15 08/29/17 01:15 Cardiac Enzymes 08/29/17 08/29/17 Range/Units 01:15 01:15 AST 29 (14-36) U/L CK-MB (CK-2) 0.6 (0.0-2.4) ng/mL Troponin I <0.012 (0.000-0.034) ng/mL Coagulation 08/29/17 Range/Units 01:15 PT 9.7 (9.0-12.0) sec APTT 22.5 (22.0-30.0) sec CBC 08/29/17 Range/Units 01:15 WBC 6.3 (3.8-10.6) k/uL RBC 3.70 L (3.80-5.40) m/uL Hgb 12.8 (11.4-16.0) gm/dL Hct 37.7 (34.0-46.0) % Plt Count 212 (150-450) k/uL Comprehensive Metabolic Panel 08/29/17 Range/Units 01:15 Sodium 141 (137-145) mmol/L Potassium 3.8 (3.5-5.1) mmol/L Chloride 105 (98-107) mmol/L Carbon Dioxide 23 (22-30) mmol/L BUN 9 (7-17) mg/dL Creatinine 0.60 (0.52-1.04) mg/dL Glucose 100 H (74-99) mg/dL Calcium 9.1 (8.4-10.2) mg/dL AST 29 (14-36) U/L ALT 31 (9-52) U/L Alkaline Phosphatase 50 (38-126) U/L Total Protein 6.6 (6.3-8.2) g/dL Albumin 4.1 (3.5-5.0) g/dL Current Medications Generic Name Dose Route Start Last Admin Trade Name Freq PRN Reason Stop Dose Admin Aspirin 325 mg 08/30/17 09:00 Aspirin PO DAILY LELA Atorvastatin Calcium 80 mg 08/29/17 09:00 Lipitor PO DAILY LELA Sodium Chloride 1,000 mls @ 100 mls/hr 08/29/17 01:12 08/29/17 01:40 Saline 0.9% IV 08/29/17 11:11 100 mls/hr .Q10H STA Administration Metoprolol Tartrate 25 mg 08/29/17 09:00 Lopressor PO BID LELA Nitroglycerin 0.4 mg 08/29/17 01:12 Nitrostat SUBLINGUAL Q5M PRN Chest Pain Intake and Output 08/28/17 08/29/17 08/29/17 22:59 06:59 14:59 Intake Total 300 Balance 300 Intake: Intake, IV Titration 300 Amount Sodium Chloride 0.9% 1, 300 000 ml @ 100 mls/hr IV . Q10H STA Rx#:[id number] Other: Voiding Method Toilet Weight 47.9 kg 08/29/17 01:15 08/29/17 01:15 EKG Interpretations (text) EKG shows normal sinus rhythm with a right bundle branch block pattern and nonspecific ST-T wave changes in the anterior leads Assessment and Plan Plan: Assessment and Plan #1 chest pain with atypical features for acute coronary syndrome, troponin negative 1. EKG shows normal sinus rhythm with a right bundle branch block pattern and nonspecific ST-T wave changes in the anterior leads. Patient had a recent admission last month at which time she underwent a stress echocardiographic study which was negative for any reversible ischemia, her echo performed at that time showed a normal ejection fraction. CTA of the chest was also performed on that admission which was negative for pulmonary embolism. #2 hypertension, untreated #3 chronic daily alcohol use #4 history of open heart surgery 3 years of age, exact details unavailable Plan We will obtain 2 subsequent troponins. Patient's pain is very atypical for acute coronary syndrome and recent stress test was negative for any reversible ischemia. Further recommendations to follow. DNP note has been reviewed, I agree with a documented findings and plan of care. Patient was seen and examined.
[2017-08-29 08:13] LABS: Creatine Kinase 47 U/L (30-135)
[2017-08-29 08:25] LABS: Creatine Kinase MB 0.5 ng/mL (0.0-2.4); Troponin I <0.012 ng/mL (0.000-0.034)
[2017-08-29] MEDS: ATORVASTATIN 80 MG TAB PO SCH (08:33)
[2017-08-29] MEDS: METOPROLOL TARTRATE 25 MG TAB PO SCH ×2 (08:33→20:13)
[2017-08-29 13:27] LABS: Creatine Kinase 47 U/L (30-135)
[2017-08-29] MEDS: THIAMINE 100 MG TAB PO SCH (13:27)
[2017-08-29 13:41] LABS: Creatine Kinase MB 0.5 ng/mL (0.0-2.4); Troponin I <0.012 ng/mL (0.000-0.034)
--- NOTE | 2017-08-29 17:23 | P.HPIM ---
History of Present Illness H&P Date: 08/29/17 Chief Complaint: Chest pain Patient is a 47-year-old female with a known history of hypertension and history of CABG when 3-year-old and daily alcohol use about half pint came to ER with the complaints of chest pain. Chest pain is mainly left retrosternal and radiating down the left arm and back. Associated with some shortness of breath. No headache or dizziness or lightheadedness. Denied any cough or sputum production. No fever no chills. No nausea vomiting or abdominal pain. Patient was recently in the hospital on August 13 with symptoms of chest discomfort she underwent a stress echocardiographic study at that time which was negative for any reversible ischemia. The test was felt to be nondiagnostic because the patient did not achieve 85% of predicted heart rate, there were no echo evidence of ischemia at 75% of predicted heart rate. Echocardiogram with Doppler study performed at that time showed a normal ejection fraction. EKG on arrival here showed a normal sinus rhythm with right bundle branch block pattern and ST-T wave changes noted in the anterior leads, similar to prior EKGs. CT of the chest was performed on this most recent admission which did not reveal any evidence of a pulmonary embolism. Chest x-ray on this admission did not reveal any active cardiopulmonary disease. Troponin 3 negative Review of Systems Constitutional: Patient denies any fever or chills . No generalized weakness or weight loss. Abdomen: Patient denied nausea vomiting and diarrhea and abdominal pain. Cardiovascular: Patient does have retrosternal chest pain. No palpitations. No leg swelling. Respiratory: patient denied any cough is from production. No shortness of breath Neurologic: Patient denied any numbness or tingling headache. Musculoskeletal: Patient denies any complaints of joint swelling or deformity. Skin: Negative Psychiatric: Negative Endocrine: No heat or cold intolerance. No recent weight gain. Genitourinary: No dysuria or hematuria. All other 14 point ROS negative except the above Past Medical History Past Medical History: Hearing Disorder / Deafness, Hypertension, Myocardial Infarction (non Q-wave) Additional Past Medical History / Comment(s): speech impairment Last Myocardial Infarction Date:: 2013 History of Any Multi-Drug Resistant Organisms: None Reported Past Surgical History: Coronary Bypass/CABG Additional Past Surgical History / Comment(s): cabg when 3 years old Past Anesthesia/Blood Transfusion Reactions: No Reported Reaction Past Psychological History: Depression Smoking Status: Never smoker Past Alcohol Use History: Abuse, Daily, Heavy Past Drug Use History: None Reported - Past Family History Father Family Medical History: Cancer, CVA/TIA, Diabetes Mellitus, Hypertension Additional Family Medical History / Comment(s): brain cancer Mother Family Medical History: Dementia Daughter(s) Additional Family Medical History / Comment(s): open heart surgery as an Medications and Allergies Home Medications Medication Instructions Recorded Confirmed Type No Known Home Medications 08/29/17 08/29/17 History Allergies Allergy/AdvReac Type Severity Reaction Status Date / Time Influenza Virus Vaccines Allergy Rash/Hives Verified 08/29/17 10:53 Penicillins Allergy Unknown Verified 08/29/17 10:53 Childhood Physical Exam Vitals: Vital Signs Temp Pulse Pulse Resp BP BP Pulse Ox 08/29/17 08:00 98 F 64 18 101/75 98 08/29/17 04:00 97.0 F L 75 18 105/77 99 08/29/17 02:59 97.0 F L 75 19 105/77 99 08/29/17 02:55 98.7 F 19 08/29/17 02:41 78 19 132/85 98 08/29/17 01:08 98.6 F 74 18 125/79 97 Intake and Output 08/28/17 08/29/17 08/29/17 22:59 06:59 14:59 Intake Total 300 118 Balance 300 118 Intake: Intake, IV Titration 300 Amount Sodium Chloride 0.9% 1, 300 000 ml @ 100 mls/hr IV . Q10H STA Rx#:[id number] Oral 118 Other: Voiding Method Toilet Toilet Weight 47.9 kg PHYSICAL EXAMINATION: Patient is lying in the bed comfortably, no acute distress, awake alert and oriented.. HEENT: Normocephalic. Neck is supple. Pupils reactive. Nostrils clear. Oral cavity is moist. Ears reveal no drainage. Neck reveals no JVD, carotid bruits, or thyromegaly. CHEST EXAMINATION: Trachea is central. Symmetrical expansion. Bilateral coarse breath sounds. Lung perez clear to auscultation and percussion. CARDIAC: Normal S1, S2 with no gallops. No murmurs . Patient does have midline scar from previous heart surgery. ABDOMEN: Soft. Bowel sounds normal. No organomegaly. No abdominal bruits. Extremities: reveal no edema. No clubbing or cyanosis Neurologically awake, alert, oriented x3 with well-coordinated movements. No focal deficits noted Skin: No rash or skin lesions. Psychiatric: Coperative. Nonsuicidal Musculoskeletal: No joint swelling or deformity. Normal range of motion. Results CBC & Chem 7: 08/29/17 01:15 08/29/17 01:15 Labs: Abnormal Lab Results - Last 24 Hours (Table) 08/29/17 08/29/17 Range/Units 01:15 01:15 RBC 3.70 L (3.80-5.40) m/uL MCV 101.9 H (80.0-100.0) fL Glucose 100 H (74-99) mg/dL Thrombosis Risk Factor Assmnt - DVT/VTE Prophylaxis DVT/VTE Prophylaxis: Pharmacologic Prophylaxis ordered - Choose All That Apply Any of the Below Risk Factors Present?: Yes Each Factor Represents 1 point: Age 41-60 years Other Risk Factors: No Other congenital or acquired thrombophilia - If yes, enter type in comment: No Thrombosis Risk Factor Assessment Total Risk Factor Score: 1 Thrombosis Risk Factor Assessment Level: Low Risk Assessment and Plan Assessment: Atypical chest pain. Ruled out acute coronary syndrome. Recent stress echo negative for reversible ischemia. Chronic alcohol abuse History of CABG at the age 3 Depression Hearing disorder/deafness History of hypertension. Currently not hypertensive. Macrocytosis likely due to alcohol abuse DVT prophylaxis Plan: Patient will be continued on telemetry monitoring. Serial troponins negative. EKG showed sinus rhythm with right bundle branch block. No change from recent study. Patient will be started on Protonix daily and counseled extensively for alcohol abuse. Continue with aspirin and statins. Cardiology is on board. Further recommendations based on the clinical course. Monitor for any alcohol withdrawal symptoms. Time with Patient: Greater than 30
[2017-08-29] MEDS: PANTOPRAZOLE 40 MG TABLET PO SCH (17:54)
[2017-08-29] MEDS: HEPARIN SODIUM,PORCINE 5,000 UNIT/ML 1 ML VIAL SQ SCH ×2 (22:45→22:51)
[2017-08-30 02:40] LABS: Cholesterol 178 mg/dL (<200); HDL Cholesterol 69 mg/dL (40-60); LDL Cholesterol,Calculated 76 mg/dL (0-99); Triglycerides 165 mg/dL (<150)
[2017-08-30] MEDS: PANTOPRAZOLE 40 MG TABLET PO SCH (06:42)
[2017-08-30] MEDS: ATORVASTATIN 80 MG TAB PO SCH (08:30)
[2017-08-30] MEDS: HEPARIN SODIUM,PORCINE 5,000 UNIT/ML 1 ML VIAL SQ SCH ×3 (08:30→17:22)
[2017-08-30] MEDS: METOPROLOL TARTRATE 25 MG TAB PO SCH ×2 (08:30→19:48)
[2017-08-30] MEDS: ASPIRIN 325 MG TAB PO SCH (08:30)
--- NOTE | 2017-08-30 12:23 | P.PN ---
Subjective Progress Note Date: 08/30/17 Principal diagnosis: Atypical chest discomfort This is a pleasant 47-year-old female patient with a past medical history significant for history of open heart surgery at 3 year of age for what it seems to be "a hole in the heart" was admitted to the hospital with atypical chest discomfort and was ruled out for acute coronary event. The patient did undergo a stress test recently and that came in to be unremarkable for ischemia. On follow-up with her today, she denies having any chest pain or discomfort or shortness of breath or dizziness or lightheadedness. From a cardiovascular standpoint of view, the patient can be discharged home. Objective - Vital Signs Vital signs: Vital Signs Temp 98.4 F 08/30/17 12:00 Pulse 54 L 08/30/17 12:00 Resp 16 08/30/17 12:00 BP 121/77 08/30/17 12:00 Pulse Ox 92 L 08/30/17 12:00 Intake & Output 08/29/17 08/30/17 08/30/17 18:59 06:59 18:59 Intake Total 618 900 Balance 618 900 Weight 49 kg 49.5 kg Intake: Oral 618 900 Other: Voiding Method Toilet Toilet Toilet # Voids 1 - Constitutional General appearance: Present: no acute distress - Respiratory Respiratory: bilateral: CTA - Cardiovascular Rhythm: regular Heart sounds: normal: S1, S2 - Labs CBC & Chem 7: 08/29/17 01:15 08/29/17 01:15 Labs: Abnormal Lab Results - Last 24 Hours (Table) 08/29/17 Range/Units 07:23 Triglycerides 165 H (<150) mg/dL HDL Cholesterol 69 H (40-60) mg/dL Assessment and Plan Assessment: Assessment #1 atypical chest discomfort Plan #1 the patient was ruled out for acute coronary event #2 from the cardiac vascular standpoint of view she can be discharged home
[2017-08-30] MEDS: THIAMINE 100 MG TAB PO SCH (12:40)
[2017-08-30] MEDS: ACETAMINOPHEN TAB 325 MG TAB PO PRN (17:23)
[2017-08-31] MEDS: HEPARIN SODIUM,PORCINE 5,000 UNIT/ML 1 ML VIAL SQ SCH ×2 (00:25→08:13)
[2017-08-31] MEDS: ACETAMINOPHEN TAB 325 MG TAB PO PRN (08:19)
[2017-08-31] MEDS: ASPIRIN 325 MG TAB PO SCH (08:19)
[2017-08-31] MEDS: PANTOPRAZOLE 40 MG TABLET PO SCH (08:20)
[2017-08-31] MEDS: METOPROLOL TARTRATE 25 MG TAB PO SCH (08:20)
[2017-08-31] MEDS: ATORVASTATIN 80 MG TAB PO SCH (08:20)
[2017-08-31 08:36] VITALS: RESP 18
[2017-08-31] MEDS: THIAMINE 100 MG TAB PO SCH (14:35)
--- NOTE | 2017-08-31 15:37 | P.PN ---
Subjective Progress Note Date: 08/30/17 Principal diagnosis: Chest pain Patient is a 47-year-old female with a known history of hypertension and history of CABG when 3-year-old and daily alcohol use about half pint came to ER with the complaints of chest pain. Chest pain is mainly left retrosternal and radiating down the left arm and back. Associated with some shortness of breath. No headache or dizziness or lightheadedness. Denied any cough or sputum production. No fever no chills. No nausea vomiting or abdominal pain. Patient was recently in the hospital on August 13 with symptoms of chest discomfort she underwent a stress echocardiographic study at that time which was negative for any reversible ischemia. The test was felt to be nondiagnostic because the patient did not achieve 85% of predicted heart rate, there were no echo evidence of ischemia at 75% of predicted heart rate. Echocardiogram with Doppler study performed at that time showed a normal ejection fraction. EKG on arrival here showed a normal sinus rhythm with right bundle branch block pattern and ST-T wave changes noted in the anterior leads, similar to prior EKGs. CT of the chest was performed on this most recent admission which did not reveal any evidence of a pulmonary embolism. Chest x-ray on this admission did not reveal any active cardiopulmonary disease. Troponin 3 negative 08/30/2017 Patient says that her chest pain is better. No shortness of breath. Tolerating oral diet. No nausea vomiting. No fever no chills. No acute overnight issues. Patient is stable to be discharged home and is trying to find placement. Likely to correction. All other review of systems negative except the above Current medications reviewed Objective - Vital Signs Vital signs: Vital Signs Temp 97.8 F 08/30/17 20:00 Pulse 71 08/30/17 20:00 Resp 16 08/30/17 20:00 BP 107/69 08/30/17 20:00 Pulse Ox 94 L 08/30/17 16:00 Intake & Output 08/30/17 08/30/17 08/31/17 06:59 18:59 06:59 Intake Total 900 Balance 900 Weight 49 kg 49.5 kg Intake: Oral 900 Other: Voiding Method Toilet Toilet Toilet # Voids 1 2 1 - Exam PHYSICAL EXAMINATION: Patient is lying in the bed comfortably, no acute distress, awake alert and oriented.. HEENT: Normocephalic. Neck is supple. Pupils reactive. Nostrils clear. Oral cavity is moist. Ears reveal no drainage. Neck reveals no JVD, carotid bruits, or thyromegaly. CHEST EXAMINATION: Trachea is central. Symmetrical expansion. Prolonged expiration. Lung perez clear to auscultation and percussion. CARDIAC: Normal S1, S2 with no gallops. No murmurs ABDOMEN: Soft. Bowel sounds normal. No organomegaly. No abdominal bruits. Extremities: reveal no edema. No clubbing or cyanosis Neurologically awake, alert, oriented x3 with well-coordinated movements. No focal deficits noted Skin: No rash or skin lesions. Psychiatric: Cooperative. Nonsuicidal Musculoskeletal: No joint swelling or deformity. Normal range of motion. - Labs CBC & Chem 7: 08/29/17 01:15 08/29/17 01:15 Labs: Abnormal Lab Results - Last 24 Hours (Table) 08/29/17 Range/Units 07:23 Triglycerides 165 H (<150) mg/dL HDL Cholesterol 69 H (40-60) mg/dL Assessment and Plan Assessment: Atypical chest pain. Ruled out acute coronary syndrome. Recent stress echo negative for reversible ischemia. No complaints of chest pain now. Possible alcoholic gastritis. Chronic alcohol abuse History of CABG at the age 3 Depression Hearing disorder/deafness History of hypertension. Currently not hypertensive. Macrocytosis likely due to alcohol abuse DVT prophylaxis Plan: Patient will be continued on telemetry monitoring. Serial troponins negative. EKG showed sinus rhythm with right bundle branch block. No change from recent study. Patient was started on Protonix daily and counseled extensively for alcohol abuse. Continue with aspirin and statins. Cardiology is on board. Further recommendations based on the clinical course. Monitor for any alcohol withdrawal symptoms. Time with Patient: Greater than 30
[2017-08-31 15:52] VITALS: BP 126/79; PULSE 70; TEMP 98.3
--- NOTE | 2017-08-31 23:28 | P.DS ---
Providers Date of admission: 08/29/17 01:13 Expected date of discharge: 08/31/17 Attending physician: Alfredito Calvillo Consults: 08/29/17 01:12 Consult Physician Urgent Consulting Provider: Joaquin Velasquez Consult Reason/Comments: cp Do you want consulting provider notified?: Yes Primary care physician: Stated None Hospital Course: Says diagnosis. Atypical chest pain. Ruled out acute coronary syndrome. Recent stress echo negative for reversible ischemia. No complaints of chest pain now. Possible alcoholic gastritis. Chronic alcohol abuse History of CABG at the age 3 Depression Hearing disorder/deafness History of hypertension. Currently not hypertensive. Macrocytosis likely due to alcohol abuse DVT prophylaxis Hospital course Patient is a 47-year-old female with a known history of hypertension and history of CABG when 3-year-old and daily alcohol use about half pint came to ER with the complaints of chest pain. Chest pain is mainly left retrosternal and radiating down the left arm and back. Associated with some shortness of breath. No headache or dizziness or lightheadedness. Denied any cough or sputum production. No fever no chills. No nausea vomiting or abdominal pain. Patient was recently in the hospital on August 13 with symptoms of chest discomfort she underwent a stress echocardiographic study at that time which was negative for any reversible ischemia. The test was felt to be nondiagnostic because the patient did not achieve 85% of predicted heart rate, there were no echo evidence of ischemia at 75% of predicted heart rate. Echocardiogram with Doppler study performed at that time showed a normal ejection fraction. EKG on arrival here showed a normal sinus rhythm with right bundle branch block pattern and ST-T wave changes noted in the anterior leads, similar to prior EKGs. CT of the chest was performed on this most recent admission which did not reveal any evidence of a pulmonary embolism. Chest x-ray on this admission did not reveal any active cardiopulmonary disease. Troponin 3 negative 08/30/2017 Patient says that her chest pain is better. No shortness of breath. Tolerating oral diet. No nausea vomiting. No fever no chills. No acute overnight issues. Patient is stable to be discharged home and is trying to find placement. Likely to long-term. 08/31/2017 Patient denied any complaints of chest pain or shortness of breath today. No other acute overnight issues. Discussed of shortness has been provided to the patient and patient was seen by social work. Otherwise stable to be discharged. Plan: Patient is continued on telemetry monitoring. Serial troponins negative. EKG showed sinus rhythm with right bundle branch block. No change from recent study. Patient was started on Protonix daily and counseled extensively for alcohol abuse. Continue with aspirin and statins. Patient was seen by cardiology. Recommended to follow with cardiology as an outpatient. Discharge physical examination was done and vitals reviewed. Vital Signs - 24 hr 08/31/17 08/31/17 08/31/17 00:00 03:40 08:00 Temperature 98.2 F 98.2 F Pulse Rate [ 59 L 70 Pulse Oximetery ] Respiratory 16 16 18 Rate Blood Pressure 112/63 [Left Arm] Blood Pressure 134/85 [Right Arm] O2 Sat by Pulse 99 98 Oximetry 08/31/17 08/31/17 08/31/17 11:51 12:00 15:51 Temperature 97.7 F 98.3 F Pulse Rate [ 52 L 70 Pulse Oximetery ] Respiratory 18 18 18 Rate Blood Pressure [Left Arm] Blood Pressure 146/92 126/79 [Right Arm] O2 Sat by Pulse 99 99 Oximetry Patient Condition at Discharge: Undetermined Plan - Discharge Summary Discharge Rx Participant: Yes New Discharge Prescriptions: New Aspirin 81 mg PO DAILY #30 chewable Metoprolol Tartrate [Lopressor] 25 mg PO BID #60 tab Multivitamin [Multivitamins Adult Gummies] 1 each PO DAILY #30 tablet Pantoprazole [Protonix] 40 mg PO AC-BRKFST #28 tablet. Thiamine [Vitamin B-1] 100 mg PO DAILY@1200 #30 tab Discharge Medication List Aspirin 81 mg PO DAILY #30 chewable 08/30/17 [Rx] Metoprolol Tartrate [Lopressor] 25 mg PO BID #60 tab 08/30/17 [Rx] Multivitamin [Multivitamins Adult Gummies] 1 each PO DAILY #30 tablet 08/30/17 [ Rx] Pantoprazole [Protonix] 40 mg PO AC-BRKFST #28 tablet. 08/30/17 [Rx] Thiamine [Vitamin B-1] 100 mg PO DAILY@1200 #30 tab 08/30/17 [Rx] Follow up Appointment(s)/Referral(s): Yonathan San MD [STAFF PHYSICIAN] - 2 Weeks (September 17 2:15pm) None,Stated [Primary Care Provider] - 1-2 days Patient Instructions/Handouts: Chest Pain (ED) Discharge Disposition: HOME SELF-CARE
== END 2017-08-31 16:20 | disposition home or self-care (01) ==
LOC: EC 00:58 → 6SEL 01:13 → 3OBS 08-30 08:51
PROVIDERS: ADMIT Hospitalist; ATTEND Hospitalist
DX: R07.89 Other chest pain (principal); R07.2 Precordial pain; R06.02 Shortness of breath; F10.10 Alcohol abuse, uncomplicated; I10 Essential (primary) hypertension; Z95.1 Presence of aortocoronary bypass graft; F32.9 Major depressive disorder, single episode, unspecified; D75.89 Other specified diseases of blood and blood-forming organs; H91.90 Unspecified hearing loss, unspecified ear; R47.9 Unspecified speech disturbances; I25.2 Old myocardial infarction; Z79.3 Long term (current) use of hormonal contraceptives; Z79.899 Other long term (current) drug therapy; Z88.0 Allergy status to penicillin; Z88.7 Allergy status to serum and vaccine; Z80.8 Family history of malignant neoplasm of other organs or systems; Z83.3 Family history of diabetes mellitus; Z82.3 Family history of stroke; Z81.8 Family history of other mental and behavioral disorders
CPT/HCPCS: 99291 ×2; 96360 ×2; 96361 ×3; 96372; 36415; 94760; 93005; 80061; 80053; 82550; 82553; 83690; 83735; 84484; 85025; 85610; 85730; 71046; G0378 ×3; J1644

== ENCOUNTER 2017-09-10 20:46 | Emergency (ER) | payer OTHER ==
[2017-09-10 21:03] VITALS: BP 146/66; PULSE 83; RESP 18; TEMP 98.4
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
[2017-09-10 21:50] LABS: Appearance,Urine Clear (Clear); Basophils % (A) 0 %; Bilirubin,Urine Negative (Negative); Blood,Urine Negative (Negative); Color,Urine Colorless; Eosinophils # (A) 0.2 k/uL (0-0.7); Eosinophils % (A) 3 %; Glucose,Urine (UA) Negative (Negative); HCT 34.8 % (34.0-46.0); Ketones,Urine Negative (Negative); Leukocyte Esterase,Urine Negative (Negative); Lymphocytes # (A) 1.5 k/uL (1.0-4.8); Lymphocytes % (A) 31 %; MCH 34.4 pg (25.0-35.0); MCHC 34.3 g/dL (31.0-37.0); MCV 100.1 fL (80.0-100.0); Mean Platelet Volume 7.9; Monocytes # (A) 0.3 k/uL (0-1.0); Monocytes % (A) 5 %; Neutrophils # (A) 2.9 k/uL (1.3-7.7); Neutrophils % (A) 59 %; Nitrite,Urine Negative (Negative); Platelet Count 193 k/uL (150-450); Protein,Urine Negative (Negative); RBC 3.48 m/uL (3.80-5.40); RDW 13.4 % (11.5-15.5); Specific Gravity,Urine 1.002 (1.001-1.035); Urobilinogen,Urine <2.0 mg/dL (<2.0)
[2017-09-10 22:01] LABS: ALT 35 U/L (9-52); AST 31 U/L (14-36); Albumin 4.2 g/dL (3.5-5.0); Alkaline Phosphatase 50 U/L (38-126); Anion Gap 8 mmol/L; Blood Urea Nitrogen 8 mg/dL (7-17); Calcium 8.7 mg/dL (8.4-10.2); Carbon Dioxide 25 mmol/L (22-30); Chloride 109 mmol/L (98-107); Glucose 86 mg/dL (74-99); Potassium 4.1 mmol/L (3.5-5.1); Sodium 142 mmol/L (137-145); Total Bilirubin 0.2 mg/dL (0.2-1.3); Total Protein 6.8 g/dL (6.3-8.2)
[2017-09-10 22:04] LABS: Alcohol 223 mg/dL
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
== END 2017-09-11 03:21 | disposition home or self-care (01) ==
LOC: EC 20:46
DX: S00.83XA Contusion of other part of head, initial encounter (principal); F10.129 Alcohol abuse with intoxication, unspecified; Z59.0 Homelessness; Z88.0 Allergy status to penicillin; Z88.7 Allergy status to serum and vaccine; Y90.7 Blood alcohol level of 200-239 mg/100 ml; V03.99XA Pedestrian with other conveyance injured in collision with car, pick-up truck or van, unspecified whether traffic or nontraffic accident, initial encounter
CPT/HCPCS: 36415; 70450; 70486; 72125; 80053; 80320; 81003; 81025; 85025; 99284

== ENCOUNTER 2018-01-31 00:27 | Emergency (ER) | payer OTHER ==
[2018-01-31 00:32] VITALS: RESP 16
[2018-01-31] MEDS ORDERED: SODIUM CHLORIDE 0.9% 1,000 ML IV ONE (01:00)
[2018-01-31 01:25] LABS: Appearance,Urine Clear (Clear); Bilirubin,Urine Negative (Negative); Blood,Urine Negative (Negative); Color,Urine Light Yellow; Glucose,Urine (UA) Negative (Negative); Ketones,Urine Negative (Negative); Leukocyte Esterase,Urine Negative (Negative); Nitrite,Urine Negative (Negative); Protein,Urine Negative (Negative); Specific Gravity,Urine 1.009 (1.001-1.035); Urobilinogen,Urine <2.0 mg/dL (<2.0)
[2018-01-31 01:27] LABS: Basophils % (A) 1 %; Eosinophils # (A) 0.2 k/uL (0-0.7); Eosinophils % (A) 3 %; HGB 12.6 gm/dL (11.4-16.0); Lymphocytes # (A) 1.2 k/uL (1.0-4.8); Lymphocytes % (A) 24 %; MCH 32.6 pg (25.0-35.0); MCV 96.1 fL (80.0-100.0); Mean Platelet Volume 7.6; Monocytes # (A) 0.3 k/uL (0-1.0); Monocytes % (A) 6 %; Neutrophils # (A) 3.1 k/uL (1.3-7.7); Neutrophils % (A) 64 %; Platelet Count 181 k/uL (150-450); RBC 3.85 m/uL (3.80-5.40); RDW 13.5 % (11.5-15.5); WBC 4.8 k/uL (3.8-10.6)
[2018-01-31 01:35] LABS: HCG,Qualitative Serum Not Detected
[2018-01-31 01:37] LABS: ALT 28 U/L (9-52); AST 27 U/L (14-36); Albumin 4.2 g/dL (3.5-5.0); Alkaline Phosphatase 46 U/L (38-126); Amylase 63 U/L (30-110); Anion Gap 10 mmol/L; Blood Urea Nitrogen 12 mg/dL (7-17); Calcium 8.9 mg/dL (8.4-10.2); Carbon Dioxide 26 mmol/L (22-30); Chloride 107 mmol/L (98-107); Glucose 100 mg/dL (74-99); Lipase 190 U/L (23-300); Potassium 4.2 mmol/L (3.5-5.1); Sodium 143 mmol/L (137-145); Total Bilirubin 0.2 mg/dL (0.2-1.3); Total Protein 7.2 g/dL (6.3-8.2)
--- NOTE | 2018-01-31 01:48 | ED ---
Nausea/Vomiting/Diarrhea HPI - General Chief complaint: Nausea/Vomiting/Diarrhea Stated complaint: nausea,vomiting Source: patient, EMS Mode of arrival: EMS Limitations: no limitations - History of Present Illness Initial comments: 47-year-old female with past medical history of chronic alcohol abuse, HTN and MD presenting today for chief complaint of nausea vomiting x few hours. Patient states that she has had nausea and vomiting for the past 3 hours. She states her last menstrual period is about 3 months ago, she believes she is . She denies any DISPATCHER REFINERY follow-up. Patient states that today she had had 1-1/2 wine coolers earlier today, following she had emesis. Patient denies any abdominal pain, pelvic cramping, diarrhea, melena, hematochezia, back pain, vaginal bleeding, vaginal discharge, chest pain, shortness of breath, dyspnea on exertion, calf pain, hemoptysis, history of cancer, history of previous DVT, calf pain or swelling, cough, sputum prodution, fever, chills or night sweats. Patient denies IV drug use, or lower extremity edema. Upon arrival, patient appears intoxicated. Vital signs within acceptable limits. - Related Data Previous Rx's Medication Instructions Recorded Aspirin 81 mg PO DAILY #30 chewable 08/30/17 Metoprolol Tartrate [Lopressor] 25 mg PO BID #60 tab 08/30/17 Multivitamin [Multivitamins Adult 1 each PO DAILY #30 tablet 08/30/17 Gummies] Pantoprazole [Protonix] 40 mg PO AC-BRKFST #28 tablet. 08/30/17 Thiamine [Vitamin B-1] 100 mg PO DAILY@1200 #30 tab 08/30/17 Allergies Allergy/AdvReac Type Severity Reaction Status Date / Time Influenza Virus Vaccines Allergy Rash/Hives Verified 01/31/18 00:32 Penicillins Allergy Unknown Verified 01/31/18 00:32 Childhood Review of Systems ROS Statement: Those systems with pertinent positive or pertinent negative responses have been documented in the HPI. ROS Other: All systems not noted in ROS Statement are negative. Constitutional: Denies: fever, chills, night sweats ENT: Denies: ear pain, throat pain Respiratory: Denies: cough, dyspnea, wheezes, hemoptysis, stridor Cardiovascular: Denies: chest pain, palpitations Endocrine: Denies: fatigue Gastrointestinal: Reports: nausea, vomiting. Denies: abdominal pain, diarrhea, constipation, hematemesis, melena, hematochezia Genitourinary: Reports: abnormal menses (no period ). Denies: urgency, dysuria , frequency, hematuria, discharge Past Medical History Past Medical History: Hearing Disorder / Deafness, Hypertension, Myocardial Infarction (non Q-wave) Additional Past Medical History / Comment(s): speech impairment Last Myocardial Infarction Date:: 2013 History of Any Multi-Drug Resistant Organisms: None Reported Past Surgical History: Coronary Bypass/CABG Additional Past Surgical History / Comment(s): 2013 cabg Past Anesthesia/Blood Transfusion Reactions: No Reported Reaction Past Psychological History: Depression Smoking Status: Never smoker Past Alcohol Use History: Abuse, Daily, Heavy Past Drug Use History: None Reported - Past Family History Father Family Medical History: Cancer, CVA/TIA, Diabetes Mellitus, Hypertension Additional Family Medical History / Comment(s): brain cancer Mother Family Medical History: Dementia Daughter(s) Additional Family Medical History / Comment(s): open heart surgery as an General Exam - General Exam Comments Initial Comments: General: The patient is awake and alert, in no distress, and does not appear acutely ill. Eye: +3 mm pupils are equal, round and reactive to light, extra-ocular movements are intact. No nystagmus. There is normal conjunctiva bilaterally. No signs of icterus. Ears, nose, mouth and throat: There are moist mucous membranes and no oral lesions. Neck: The neck is supple, there is no tenderness or JVD. Cardiovascular: There is a regular rate and rhythm. No murmur, rub or gallop is appreciated. Respiratory: Lungs are clear to auscultation, respirations are non-labored, breath sounds are equal. No wheezes, stridor, rales, or rhonchi. Gastrointestinal: Soft, non-distended, non-tender abdomen without masses or organomegaly noted. There is no rebound or guarding present. No CVA tenderness. Bowel sounds are unremarkable. Musculoskeletal: Normal ROM, no tenderness. Strength 5/5. Sensation intact. Pulses equal bilaterally 2+. Neurological: A&O x 3. CN II-XII intact, There are no obvious motor or sensory deficits. Coordination appears grossly intact. Speech is normal. Skin: Skin is warm and dry and no rashes or lesions are noted. Psychiatric: Cooperative, appropriate mood & affect, normal judgment. Limitations: no limitations Course Vital Signs 01/31/18 01/31/18 00:29 03:32 Temperature 98.2 F 98.1 F Pulse Rate 79 84 Respiratory 16 16 Rate Blood Pressure 135/88 163/95 O2 Sat by Pulse 97 97 Oximetry Medical Decision Making - Medical Decision Making Urine preg (-). Abdominal exam benign. 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 (-) for . Pt ETOH .73. Pt has not had any additional episodes of nausea or vomiting. Remainder of laboratory findings, unremarkable. Pt is requesting discharge at this time I feel pt nausea and vomiting most likely related to ETOH intoxication. Pt discharged with primary f/u. Return parameters discussed at length patient, patient verbalizes understanding. Patient denied questions. Vital signs within acceptable limits case discussed with Dr. Deleon prior to d/c agreed with impression and plan. - Lab Data Result diagrams: 01/31/18 00:57 01/31/18 00:57 Lab Results 01/31/18 01/31/18 01/31/18 Range/Units 00:57 00:57 00:57 WBC 4.8 (3.8-10.6) k/uL RBC 3.85 (3.80-5.40) m/uL Hgb 12.6 (11.4-16.0) gm/dL Hct 37.0 (34.0-46.0) % MCV 96.1 (80.0-100.0) fL MCH 32.6 (25.0-35.0) pg MCHC 34.0 (31.0-37.0) g/dL RDW 13.5 (11.5-15.5) % Plt Count 181 (150-450) k/uL Neutrophils % 64 % Lymphocytes % 24 % Monocytes % 6 % Eosinophils % 3 % Basophils % 1 % Neutrophils # 3.1 (1.3-7.7) k/uL Lymphocytes # 1.2 (1.0-4.8) k/uL Monocytes # 0.3 (0-1.0) k/uL Eosinophils # 0.2 (0-0.7) k/uL Basophils # 0.0 (0-0.2) k/uL Sodium 143 (137-145) mmol/L Potassium 4.2 (3.5-5.1) mmol/L Chloride 107 (98-107) mmol/L Carbon Dioxide 26 (22-30) mmol/L Anion Gap 10 mmol/L BUN 12 (7-17) mg/dL Creatinine 0.66 (0.52-1.04) mg/dL Est GFR (CKD-EPI)AfAm >90 (>60 ml/min/1.73 sqM) Est GFR (CKD-EPI)NonAf >90 (>60 ml/min/1.73 sqM) Glucose 100 H (74-99) mg/dL Calcium 8.9 (8.4-10.2) mg/dL Total Bilirubin 0.2 (0.2-1.3) mg/dL AST 27 (14-36) U/L ALT 28 (9-52) U/L Alkaline Phosphatase 46 (38-126) U/L Total Creatine Kinase (30-135) U/L CK-MB (CK-2) (0.0-2.4) ng/mL CK-MB (CK-2) Rel Index Troponin I (0.000-0.034) ng/mL Total Protein 7.2 (6.3-8.2) g/dL Albumin 4.2 (3.5-5.0) g/dL Amylase 63 (30-110) U/L Lipase 190 (23-300) U/L HCG, Qual Not Detected Urine Color Urine Appearance (Clear) Urine pH (5.0-8.0) Ur Specific [place] (1.001-1.035) Urine Protein (Negative) Urine Glucose (UA) (Negative) Urine Ketones (Negative) Urine Blood (Negative) Urine Nitrite (Negative) Urine Bilirubin (Negative) Urine Urobilinogen (<2.0) mg/dL Ur Leukocyte Esterase (Negative) Urine HCG, Qual Not Detected (Not Detectd) Serum Alcohol mg/dL 01/31/18 01/31/18 01/31/18 Range/Units 00:57 00:57 03:06 WBC (3.8-10.6) k/uL RBC (3.80-5.40) m/uL Hgb (11.4-16.0) gm/dL Hct (34.0-46.0) % MCV (80.0-100.0) fL MCH (25.0-35.0) pg MCHC (31.0-37.0) g/dL RDW (11.5-15.5) % Plt Count (150-450) k/uL Neutrophils % % Lymphocytes % % Monocytes % % Eosinophils % % Basophils % % Neutrophils # (1.3-7.7) k/uL Lymphocytes # (1.0-4.8) k/uL Monocytes # (0-1.0) k/uL Eosinophils # (0-0.7) k/uL Basophils # (0-0.2) k/uL Sodium (137-145) mmol/L Potassium (3.5-5.1) mmol/L Chloride (98-107) mmol/L Carbon Dioxide (22-30) mmol/L Anion Gap mmol/L BUN (7-17) mg/dL Creatinine (0.52-1.04) mg/dL Est GFR (CKD-EPI)AfAm (>60 ml/min/1.73 sqM) Est GFR (CKD-EPI)NonAf (>60 ml/min/1.73 sqM) Glucose (74-99) mg/dL Calcium (8.4-10.2) mg/dL Total Bilirubin (0.2-1.3) mg/dL AST (14-36) U/L ALT (9-52) U/L Alkaline Phosphatase (38-126) U/L Total Creatine Kinase 60 (30-135) U/L CK-MB (CK-2) 0.8 (0.0-2.4) ng/mL CK-MB (CK-2) Rel Index 1.3 Troponin I <0.012 (0.000-0.034) ng/mL Total Protein (6.3-8.2) g/dL Albumin (3.5-5.0) g/dL Amylase (30-110) U/L Lipase (23-300) U/L HCG, Qual Urine Color Light Yellow Urine Appearance Clear (Clear) Urine pH 6.0 (5.0-8.0) Ur Specific [place] 1.009 (1.001-1.035) Urine Protein Negative (Negative) Urine Glucose (UA) Negative (Negative) Urine Ketones Negative (Negative) Urine Blood Negative (Negative) Urine Nitrite Negative (Negative) Urine Bilirubin Negative (Negative) Urine Urobilinogen <2.0 (<2.0) mg/dL Ur Leukocyte Esterase Negative (Negative) Urine HCG, Qual (Not Detectd) Serum Alcohol 73 mg/dL - EKG Data EKG Comments: EKG revealed normal sinus rhythm with sinus arrhythmia. There is right bundle branch block this is consistent with previous EKG obtained earlier this year. Noted nonspecific T-wave abnormality. No noted ST elevation. EKG interpreted by myself and Dr. Deleon. Disposition Clinical Impression: Nausea & vomiting Disposition: HOME SELF-CARE Condition: Good Instructions: Acute Nausea and Vomiting (ED) Additional Instructions: Please follow-up with family doctor in the next 2 days. Please return to emergency room if the symptoms increase or worsen or for any other concerns. Is patient prescribed a controlled substance at d/c from ED?: No Referrals: None,Stated [Primary Care Provider] - 1-2 days [facility] [NON-STAFF] - 1-2 days Time of Disposition: 04:17
[2018-01-31 02:15] LABS: Creatine Kinase 60 U/L (30-135)
[2018-01-31 02:29] LABS: Creatine Kinase MB 0.8 ng/mL (0.0-2.4); Troponin I <0.012 ng/mL (0.000-0.034)
--- NOTE | 2018-01-31 02:29 | US ---
EXAMINATION TYPE: Transabdominal DATE OF EXAM: 05/26/17 COMPARISON: NONE CLINICAL HISTORY: Nausea and vomiting, patient denies pain EXAM PERFORMED: Transabdominal (TA) EXAM MEASUREMENTS: GESTATIONAL AGE / DATING Physician Established: Not yet established ( weeks/ days) EDC: Dates by LMP: LMP unknown, some time 3 months prior Dates by First Scan: No previous this is first scan Dates by Current Scan for: No IUP seen at this time MATERNAL ANATOMY Uterus: 8.4 x 2.5 x 4.4cm Right Ovary: 2.1 x 1.3 x 1.3cm Left Ovary: 3.0 x 1.7 x 1.9cm Post CDS / Adnexa: wnl GESTATION / SURVEY IUP: No IUP seen at this time Date of LMP: 3 months prior Beta HcG (if available): negative urine was in at the time tech started exam, when tech finished, ne g HCG qual. in also negative IMPRESSION: Empty uterus. Endometrium is 3 mm. No adnexal mass or free fluid.
[2018-01-31] MEDS ORDERED: ONDANSETRON ODT 4 MG TAB PO STA (02:30)
[2018-01-31 03:35] VITALS: BP 163/95; PULSE 84; TEMP 98.1
== END 2018-01-31 04:31 | disposition home or self-care (01) ==
LOC: EC 00:27
DX: R11.2 Nausea with vomiting, unspecified (principal); R19.7 Diarrhea, unspecified; I25.2 Old myocardial infarction; Z95.1 Presence of aortocoronary bypass graft; Z88.7 Allergy status to serum and vaccine; Z88.0 Allergy status to penicillin
CPT/HCPCS: 36415; 93005; 80053; 82150; 82550; 82553; 83690; 84484; 85025; 81003; 81025; 84703; 76801; 99285; 96360; G0480; 80320

== ENCOUNTER 2018-10-12 23:24 | Emergency (ER) | payer OTHER ==
[2018-10-12 23:33] VITALS: RESP 18
[2018-10-13] MEDS ORDERED: MORPHINE SULFATE 2 MG/ML SYRINGE IVP STA (00:21)
--- NOTE | 2018-10-13 01:26 | CT ---
History: ITS.REASON CT Reason: Pain Exam: CT HEAD Without Contrast Technique more: CTDI is 45.2 mGy and DLP is 1017 mGy-cm. Technique more: This CT exam was performed using one or more of the following dose reduction techniques: automated exposure control, adjustment of the mA and/or kV according to patient size, and/or use of iterative reconstruction technique. Comparison: 09/10/2017 FINDINGS: Off axis imaging. No intracranial hemorrhage, mass effect or calvarial fracture. The ventricles appear unchanged in size and remain midline. Patchy areas of white matter low attenuation again noted and are not significantly changed in appearance, nonspecific. Partially imaged possible mucous retention cyst visualized left maxillary sinus. The mastoids and orbits appear within limits. IMPRESSION: Off axis imaging. No intracranial hemorrhage, mass effect or calvarial fracture. Patchy areas of white matter low attenuation again noted and are not significantly changed in appearance, nonspecific. Exam: CT C SPINE Without Contrast Technique more: CTDI is 8.4 mGy and DLP is 269 mGy-cm. Technique more: This CT exam was performed using one or more of the following dose reduction techniques: automated exposure control, adjustment of the mA and/or kV according to patient size, and/or use of iterative reconstruction technique. Comparison: 09/10/2017 FINDINGS: No fracture or malalignment. The disc spaces appear within limits. Bilateral areas of facet hypertrophic degenerative change. No prevertebral swelling. The visualized upper lungs appear clear. 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 Pediatric appearing median sternotomy noted. Leftward curvature upper thoracic spine. IMPRESSION: No fracture or malalignment. Bilateral areas of facet hypertrophic degenerative change. 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 Pediatric appearing median sternotomy noted. Leftward curvature upper thoracic spine.
--- NOTE | 2018-10-13 02:25 | XR ---
EXAM: XR Thoracic Spine, 2 Views CLINICAL HISTORY: ITS.REASON XR Reason: Pain TECHNIQUE: Frontal and lateral views of the thoracic spine. COMPARISON: No relevant prior studies available. FINDINGS: Vertebrae: No acute fracture. Mild reverse S-shaped scoliosis alignment. Disc spaces: Mild degenerative changes. Soft tissues: Unremarkable. IMPRESSION: No acute osseous findings.
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
[2018-10-13 04:16] VITALS: BP 110/70; PULSE 82; TEMP 98
== END 2018-10-13 04:16 | disposition home or self-care (01) ==
LOC: EC 23:24
DX: S01.01XA Laceration without foreign body of scalp, initial encounter (principal); S20.412A Abrasion of left back wall of thorax, initial encounter; I10 Essential (primary) hypertension; I25.2 Old myocardial infarction; Z79.899 Other long term (current) drug therapy; Z88.0 Allergy status to penicillin; Z88.7 Allergy status to serum and vaccine; Z95.1 Presence of aortocoronary bypass graft; Y04.0XXA Assault by unarmed brawl or fight, initial encounter
CPT/HCPCS: 82075; 72072; 72125; 70450; 99284; 12002; 96374; J2270

== ENCOUNTER 2021-08-17 23:47 | Emergency (ER) | payer MEDICARE, OTHER ==
[2021-08-17 23:58] VITALS: BP 160/96; PULSE 93; RESP 18; TEMP 98.3
--- NOTE | 2021-08-18 00:28 | CT ---
EXAM: CT Head Without Intravenous Contrast CLINICAL HISTORY: ITS.REASON CT Reason: headache TECHNIQUE: Axial computed tomography images of the head/brain without intravenous contrast. CTDI is 49.2 mGy and DLP is 1141.4 mGy-cm. This CT exam was performed using one or more of the following dose reduction techniques: automated exposure control, adjustment of the mA and/or kV according to patient size, and/or use of iterative reconstruction technique. COMPARISON: 10/13/2018. FINDINGS: Brain: No abnormal extra-axial collection is noted. No hemorrhage. No significant white matter disease. Midline shift: Midline anatomy is unremarkable. Ventricles: The ventricular system is age appropriate. Bones/joints: Calvarium is within normal limits. No acute fracture. Soft tissues: Unremarkable. Sinuses: Visualized sinuses are unremarkable. Mastoid air cells: Mastoid air cells are well pneumatized. IMPRESSION: 1. No acute intracranial pathology. 2. Age appropriate changes. 3. If there is concern for etiology such as early acute lacunar infarcts, MRI imaging of the brain with diffusion-weighted sequences should be performed.
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
[2021-08-18] MEDS ORDERED: methylPREDNISolone SOD SUCCI 125 MG/2 ML VIAL IV STA (03:02)
[2021-08-18] MEDS ORDERED: diphenhydrAMINE 50 MG/ML 1 ML VIAL IVP STA (03:02)
[2021-08-18] MEDS ORDERED: SODIUM CHLORIDE 0.9% 500 ML 500 ML IV STA (03:02)
[2021-08-18] MEDS ORDERED: METOCLOPRAMIDE 5 MG/ML 2 ML VIAL IVP STA (03:02)
== END 2021-08-18 03:20 | disposition left against medical advice (07) ==
LOC: EC 23:47
DX: R51.9 Headache, unspecified (principal); I10 Essential (primary) hypertension; I25.2 Old myocardial infarction; Z88.7 Allergy status to serum and vaccine; Z88.0 Allergy status to penicillin
CPT/HCPCS: 70450; 99284